=== PATIENT | female | born 1970 | race Hispanic/Latino ===

== ENCOUNTER 2024-09-12 09:57 | Day surgery (SDC) | payer OTHER ==
[2024-09-12] VITALS (11 sets, daily range): BP systolic 80–122; BP diastolic 42–76; PULSE 77–104; RESP 13–19; TEMP 97–97.5
[~2024-09-12] VITALS: Ht 160 cm; Wt 68.0 kg
[~2024-09-12 09:57] MED LIST: HYDR12.54 PO; METO-408 PO; TELMISARTAN PO
[2024-09-12] MEDS: 0.9%NACL 1000ML 1,000 ML IV ONE (11:19)
[2024-09-12] MEDS ORDERED: proPOFol 10 MG/ML 20ML VIAL IV ONE ×3 (12:43→13:03)
== END 2024-09-12 14:15 | disposition home or self-care (01) ==
LOC: DAH 09:57 → ENDO 09:57
PROVIDERS: ATTEND Internal Medicine
DX: Z12.11 Encounter for screening for malignant neoplasm of colon (principal); D12.0 Benign neoplasm of cecum; D12.3 Benign neoplasm of transverse colon; I10 Essential (primary) hypertension; Z80.0 Family history of malignant neoplasm of digestive organs; Z79.899 Other long term (current) drug therapy
CPT/HCPCS: 45380; 45385; 81025; J7030 ×2; J2704 ×3; A4620; A4215; A4223; A4222; A4221; A4663; A4606; J3490